=== PATIENT | female | born 1995 | race Two or more races ===

== ENCOUNTER → 2017-05-25 15:02 | Outpatient (CLI) | payer MEDICAID | END | disposition home or self-care (01) | LOC: D.LDO 15:02 | DX: O36.8190 Decreased fetal movements, unspecified trimester, not applicable or unspecified (principal); Z3A.00 Weeks of gestation of pregnancy not specified ==

== ENCOUNTER → 2017-07-01 10:26 | Outpatient (CLI) | payer MEDICAID ==
[2017-07-01 11:24] LABS: APPEARANCE CLEAR (CLEAR); BILIRUBIN NEGATIVE (NEGATIVE); COLOR YELLOW (YELLOW); GLUCOSE 250 mg/dL (NEGATIVE); KETONE NEGATIVE (NEGATIVE); NITRITE NEGATIVE (NEGATIVE); PROTEIN NEGATIVE (NEGATIVE); SPECIFIC GRAVITY 1.025 (1.005-1.020); UROBILINOGEN NORMAL (NORMAL)
[2017-07-01 11:29] LABS: BACTERIA MANY /hpf (NONE SEEN); EPITHELIAL CELLS 0-5 /hpf (0-5); MUCUS <1+ /lpf (NONE SEEN); RED CELLS - URINE 0-5 /hpf (0-5); WHITE CELLS - URINE OCC /hpf (0-5)
[2017-07-01 11:30] LABS: CALCIUM OXALATE CRYSTALS 0-5 /hpf (NONE SEEN)
== END | disposition home or self-care (01) ==
LOC: D.LDO 10:26
PROVIDERS: Obstetrics & Gynecology
DX: O26.899 Other specified pregnancy related conditions, unspecified trimester (principal); Z3A.00 Weeks of gestation of pregnancy not specified; R10.2 Pelvic and perineal pain

== ENCOUNTER 2017-08-18 21:12 | Inpatient (IN) | payer MEDICAID ==
[~2017-08-18] VITALS: Ht 152.4 cm; Wt 68.0 kg
--- NOTE | ~2017-08-18 | OP ---
PATIENT NAME: RANDALL RAY MEDICAL RECORD: [id number] :93 LOCATION:[id number] ADMISSION DATE:08/18/17 SURGEON: CAMRON MEDEROS MD DATE OF OPERATION: 08/20/2017 DELIVERY NOTE PREDELIVERY DIAGNOSIS: Mother at term. POSTDELIVERY DIAGNOSES: 1. Mother delivered at term. 2. Shoulder dystocia. 3. Nonreassuring tracing. PROCEDURES: 1. Induction of labor. 2. Vacuum-assisted vaginal delivery. ATTENDING: Camron Mederos MD ANESTHETIC: Continuous lumbar epidural. FINDINGS: Viable male , vertex presentation, Apgars are 9 and 9, weight is 7 pounds 9 ounces. Shoulder dystocia encountered and relieved with Rashaad and suprapubic from left to right. Second degree laceration with repair utilizing 3-0 chromic. There is a vaginal vault laceration and Vicryl was utilized to close this. The placenta is spontaneous and intact. ESTIMATED BLOOD LOSS: 400 cc. DISPOSITION: Mother and recovered in the room. TRANSINT:[id number] Voice Confirmation ID: [id number] DOCUMENT ID: [id number] CAMRON MEDEROS MD at 1624 CC: [id number] DICTATION DATE: 08/20/17 0633 RECOVERY ASSISTANT: 08/20/17 0751 ADM IN [id number] [place] [address]
--- NOTE | ~2017-08-18 | DS ---
PATIENT:RANDALL RAY :89 MEDICAL RECORD: [id number] DISCHARGE SUMMARY ADMISSION DATE: 08/18/17 DISCHARGE DATE: 08/21/17 DATE OF ADMISSION: 08/18/2017. DATE OF DISCHARGE: 08/21/2017. ADMISSION DIAGNOSIS: at term. DISCHARGE DIAGNOSES: 1. at term. 2. Nonreassuring tracing. PROCEDURE PERFORMED: Induction of labor with vacuum-assisted delivery. ATTENDING: Sammi Estrada MD HISTORY OF PRESENT ILLNESS: See the H&P in the chart. SUMMARY OF HOSPITALIZATION: The patient was admitted to the hospital and induction delayed the first 8 hours. The patient finally had her Misoprostol started after several hours admission to the hospital. It was noted during her labor course, infant had an arrhythmia, most likely noted to be preatrial contractions. The patient went on to progress into active labor and during the second stage noted to have deep decelerations. With maternal consent, vacuum assisted vaginal delivery was affected. The patient did well with the exception of inability to void in the first few hours. Due to swelling and difficulties voiding, the Willis catheter was started and to be left in overnight. On the day of discharge, the patient will have the Willis removed and upon voiding will be discharged home. DISCHARGE MEDICATIONS: Include ibuprofen. The patient will be instructed to perform Sitz baths t.i.d. as needed. Follow up in 6 weeks in the clinic. TRANSINT:[id number] Voice Confirmation ID: [id number] DOCUMENT ID: [id number] SAMMI ESTRADA MD at 0820 CC: [id number] DICTATION DATE: 08/21/17 0846 FIELD CROP FARMWORKER: 08/21/17 1137 DIS IN 08/21/17 [id number] [place] [address]
[2017-08-18 23:40] LABS: HEMATOCRIT 29.1 % (36.0-48.0); HEMOGLOBIN 9.1 g/dL (12-16); MCH 21.9 pg (26.0-34.0); MCHC 31.3 g/dL (31.0-37.0); MCV 70.1 fL (80.0-100.0); MEAN PLATELET VOLUME 9.4 fL (7.4-10.4); RBC 4.15 10x6/uL (4.00-5.40); RDW 15.6 % (11.5-14.5); WBC 14.1 10x3/uL (4.8-10.8)
[2017-08-18 23:45] VITALS: BP 112/66; BMI 29.3
[2017-08-19 14:21] VITALS: Ht 152.4 cm; Wt 68.0 kg
[2017-08-20 06:16] LABS: RAPID PLASMA REAGIN Non Reactive (Non Reactive)
[2017-08-20 07:32] VITALS: BP 110/69
[2017-08-20 12:49] VITALS: BP 95/62
[2017-08-20 17:18] VITALS: BP 107/69
[2017-08-20 19:55] VITALS: BP 101/62
[2017-08-21 07:54] VITALS: BP 117/71
[2017-08-21 08:30] VITALS: BP 125/78
[2017-08-21] MEDS ORDERED: IBUPROFEN800 MG PO (12:16)
[2017-08-21 14:36] VITALS: BP 118/76
== END 2017-08-21 19:50 | disposition home or self-care (01) | DRG 775 ==
LOC: D.LD 21:12 → D.NSY 08-20 16:08 → D.LD 08-20 21:00
PROVIDERS: Obstetrics & Gynecology
PROC: 3E033VJ Introduction of Other Hormone into Peripheral Vein, Percutaneous Approach (ICD-10-PCS; principal; 2017-08-20)
PROC: 10D07Z6 Extraction of Products of Conception, Vacuum, Via Natural or Artificial Opening (ICD-10-PCS; 2017-08-20)
PROC: 0KQM0ZZ Repair Perineum Muscle, Open Approach (ICD-10-PCS; 2017-08-20)
PROC: 10907ZC Drainage of Amniotic Fluid, Therapeutic from Products of Conception, Via Natural or Artificial Opening (ICD-10-PCS; 2017-08-20)
DX: O76 Abnormality in fetal heart rate and rhythm complicating labor and delivery (principal); O70.1 Second degree perineal laceration during delivery; O48.0 Post-term pregnancy; O99.334 Smoking (tobacco) complicating childbirth; Z3A.40 40 weeks gestation of pregnancy; Z37.0 Single live birth

== ENCOUNTER 2019-01-14 06:11 | Inpatient (IN) | payer MEDICAID ==
[~2019-01-14] VITALS: Ht 152.4 cm; Wt 67.1 kg
[2019-01-14] VITALS (10 sets, daily range): BP systolic 96–126; BP diastolic 53–79; Ht 152.4 cm; Wt 67.1 kg
[~2019-01-14 06:11] MED LIST: IBUPROFEN800 MG PO
[2019-01-14 06:53] LABS: HEMATOCRIT 25.5 % (36.0-48.0); HEMOGLOBIN 7.7 g/dL (12-16); MCHC 30.2 g/dL (31.0-37.0); MEAN PLATELET VOLUME 9.2 fL (7.4-10.4); RBC 4.18 10x6/uL (4.00-5.40); RDW 18.3 % (11.5-14.5); WBC 9.4 10x3/uL (4.8-10.8)
[2019-01-14 06:55] LABS: MCH 18.4 pg (26.0-34.0)
[2019-01-14 07:03] LABS: UDS - AMPHET NEGATIVE QUAL (NEGATIVE); UDS - BARB NEGATIVE QUAL (NEGATIVE); UDS - BENZO NEGATIVE QUAL (NEGATIVE); UDS - COCAINE NEGATIVE QUAL (NEGATIVE); UDS - OPIATE NEGATIVE QUAL (NEGATIVE); UDS - PCP NEGATIVE QUAL (NEGATIVE); UDS - THC NEGATIVE QUAL (NEGATIVE)
--- NOTE | 2019-01-14 08:03 | NUR ---
BABY BORN AT 0754 TRANFERRED TO NURSERY WITH PINA KING RN, NURSERY NURSE.
--- NOTE | 2019-01-14 09:20 | NUR ---
FUNDUS IS MIDLINE 2/U, FIRM. HUNTER PAD IN PLACE. MODERATE RUBRA LOCHIA NOTED ON PAD. NO CLOTS PRESENT. WILL CONTINUE TO MONITOR.
--- NOTE | 2019-01-14 09:38 | NUR ---
RECEIVED PT VIA PT BED TO ROOM 1273-A, AWAKE, ALERT, CONVERSANT, SHIVERING, EXTRA BLANKET PROVIDED, HOB ELEVATED 30 DEGREES, SIDE RAILS UP X2, IV OF NS WITH 20 UNITS PITOCIN ADDED HUNG TO IVAC PUMP AND INFUSING TO LEFT FA PIV SITE WITHOUT DIFFICULTY, FUNDUS FIRM AT U/2 AND MIDLINE, LOCHIA RUBRA MODERATE AMOUNT NO CLOTS, STEVENS TO GRAVITY DRAINAGE WITH ZERO IN COLLECTION CHAMBER AT THIS TIME-URINE PRESENT IN TUBING. PT UNABLE TO MOVE LEGS FREELY AT THIS TIME, PEDAL PULSES STRONG/=/+2 B, NEGATIVE JOSÉ MIGUEL'S SIGN B LE. REVIEWED PLAN OF CARE, QUESTIONS ANSWERED, VSS. WILL MONITOR PER PROTOCOL.
--- NOTE | 2019-01-14 10:12 | NUR ---
SHIFT/ADMIT ASSESSMENT COMPLETED, MORPHINE ANALYTICAL RESEARCH CHEMIST HUNG AND INFUSING PER ANALYTICAL RESEARCH CHEMIST PUMP, PT DEMONSTRATES ABILITY TO PUSH BUTTON, DEMONSTRATES USE OF INCENTIVE SPIROMETRY WITH 1750ML VOLUME INSPIRED WITH ENCOURAGEMENT, TO PT ARMS AT THIS TIME. NO FAMILY PRESENT IN ROOM CONTINUE TO MONITOR.
--- NOTE | 2019-01-14 10:45 | NUR ---
FUNDUS FIRM AT U/2, LOCHIA RUBRA MODERATE AMOUNT, NO EXCESSIVE BLEEDING. PT DROWSY. WILL MONITOR.
--- NOTE | 2019-01-14 11:02 | NUR ---
PER REPORT OF Meli BIGGS RN STATES DR CHILDERS WANTED CBC 2 HOURS POST-OPERATIVELY SO WANTS TIMED BLOOD DRAW TODAY. ORDER CORRECTED TO REFLECT THIS ORDER ENTERED FOR TOMORROW AT 11 AM IN ERROR.
--- NOTE | 2019-01-14 11:16 | NUR ---
INFANT TO ARMS TO BOTTLE FEED , NO FAMILY PRESENT IN ROOM. PT AWAKE, ALERT, AND APPROPRIATELY CONVERSANT, DEMONSTRATING USE OF BOBTAIL DRIVER BUTTON USE FOR PAIN RATED 5-6/10--BOLUS GIVEN ONE HOUR AGO, ENCOURAGED USE OF BOBTAIL DRIVER BUTTON Q10 MIN UNTIL COMFORTABLE, PT STATES UNDERSTANDING, WILL RE-EVALUATE ON NEXT CHECK. FUNDUS FIRM AT U/2 AND MIDLINE, LOCHIA RUBRA MODERATE AMOUNT, NO CLOTS, CALL LIGHT IN EASY REACH.
--- NOTE | 2019-01-14 11:20 | NUR ---
NOTIFIED DR CHILDERS OF PT C/O PAIN RATED A 7 OF 10 ON INQUIRY. STATES TO GIVE AN ADDITIONAL DOSE TORADOL 15MG SIVP NOW. RELAYED TO PT.
--- NOTE | 2019-01-14 11:25 | NUR ---
ADMINISTERED TORADOL 15 MG SIVP PER PT REQUEST AND MD ORDER. PT WITH IN ARMS. NAD NOTED. CONTINUE TO MONITOR. NOTED THAT PERFORMANCE TEST ENGINEER JUST LEFT ROOM POST-TIMED CBC DRAW.
[2019-01-14 11:32] LABS: BASOPHILS 0.2 % (0-2); EOSINOPHILS 0.1 % (0-7); HEMATOCRIT 24.5 % (36.0-48.0); IMMATURE GRANULOCYTES 0.4 % (0-5); MCH 18.4 pg (26.0-34.0); MCHC 29.8 g/dL (31.0-37.0); MCV 61.7 fL (80.0-100.0); MEAN PLATELET VOLUME 9.5 fL (7.4-10.4); MONOCYTES 2.2 % (2-11); NEUTROPHILS 83.1 % (40-80); PLATELET COUNT 217 10x3/uL (130-400); RBC 3.97 10x6/uL (4.00-5.40); WBC 12.8 10x3/uL (4.8-10.8)
[2019-01-14 11:34] LABS: HEMOGLOBIN 7.3 g/dL (12-16)
--- NOTE | 2019-01-14 11:46 | NUR ---
PAGED DR CHILDERS TO REPORT CRITICAL LAB VALUE RECEIVED PER Juanis KING RN VIA LAB OF [facility] 7.3.
--- NOTE | 2019-01-14 12:06 | NUR ---
4 HOUR LIMIT REACHED ON METAL FITTER-PAGED DR CHILDERS TO NOTIFY. NEW ORDER RECEIVED TO DC METAL FITTER AND START MORPHINE 4 MG IV Q4 HOURS PRN PAIN. RELAYED INFORMATION TO PT.
--- NOTE | 2019-01-14 13:57 | NUR ---
PT C/O PAIN 8-9 ON NUMERIC PAIN SCALE, MORPHINE 4MG SIVP GIVEN FOR C/O PAIN, DEMONSTRATES IS USE UP TO 1500ML INSPIRED VOLUME, PERICARE PROVIDED, PERIPADS REPLACED, FUNDUS FIRM AT U/2 AND MIDLINE. REPORTS INCREASED NUMBNESS/TINGLING TO B LE NOW. NOTIFIED ANESTHESIA AND WILL CHECK ON ROUNDS THIS AFTERNOON. PT RESP EVEN AND UNLABORED, PT SMILES AND CONVERSES APPROPRIATELY. ABLE TO COOMBS FREELY, SCDS ON AND FUNCTIONING B LE. PEDAL PULSES STRONG AND EQUAL 2+ B.
--- NOTE | 2019-01-14 14:55 | NUR ---
PT C/O FEELING TINGLING AND NUMBNESS UPPER EXTREMETIES. MOVES AT ALL JOINTS WITHOUT DIFFICULTY. DR CHILDERS NOTIFIED. TO CONSULT ANESTHESIA FOR EVALUATION.
--- NOTE | 2019-01-14 15:26 | NUR ---
SITTING UP IN BED HOLDING . SAYS SHE NO LONGER HAS NUMBNESS OR TINGLING OF UPPER ARMS. "IT'S BETTER NOW. I THINK I WAS JUST STIFF". SIDE RAILS UP X 2, CALL LIGHT IN REACH. DR ROGERS'S ON L&D AT THIS TIME DOING AN EPIDURAL, WILL INFORM HIM OF CONSULT AND RESOLUTION OF COMPLAINT.
--- NOTE | 2019-01-14 15:45 | NUR ---
DR CHILDERS ON L&D AND NOTIFIED THAT PT NO LONGER C/O OF NUMBNESS AND TINGLING OF UPPER EXTREMETIES. NO NEW ORDERS.
--- NOTE | 2019-01-14 16:30 | NUR ---
ROUNDS COMPLETED, PT STATES LESS NUMBNESS AND TINGLING, NO ARM PAIN. RATES PAIN AROUND A 6 OR 7 NOW BUT SMILES AND CARRIES ON CONVERSATION. FACIAL SCALE PAIN SCALE IS APPROXIMATELY 3-4 PER THIS MARKETING SALES MANAGER. TOLERATING PO FLUIDS, SIPPING SPRITE.
--- NOTE | 2019-01-14 18:16 | NUR ---
PT C/O ABD INCISIONAL PAIN, TORADOL AND MORPHINE ADMINISTERED PER PT REQUEST. PT TALKATIVE, IN ARMS, DENIES OTHER NEEDS OR CONCERNS, CALL LIGHT IN EASY REACH, NAD NOTED. CONTINUE TO MONITOR.
--- NOTE | 2019-01-14 19:15 | NUR ---
bedside report completed, nad noted.
--- NOTE | 2019-01-14 19:20 | NUR ---
ASSESSMENT PER FLOW SHEET, VS OBTAINED, IV IN LEFT FA INTACT WITH NO REDNESS OR EDEMA INFUSING VIA PUMP NS WITH PITOCIN AT 125 ML/HR, FF, ML, U/2, LITE BLEEDING WITH NO CLOTS NOTED, BIKINI INC WITH LARGE DRESSING CDI WITH NO DRAINAGE NOTED, ICE PACK TO ABD, STEVENS CATH INTACT DRAINING DARK YELLOW URINE, PT ENC TO DRINK PLENTY OF FLUID, SCD'S ON AND WORKING PROPERLY, POC DISCUSSED WITH PT REGARDING REMOVING STEVENS, SALINE LOCK IV, AND STARTING PO PAIN MEDS, PT VERBALIZES UNDERSTANDING, BEHZAD GREEN LPN IN ROOM DOING ASSESSMENT, PT RATES INC PAIN 12/14, PT DENIES NEEDS AT THIS TIME
--- NOTE | 2019-01-14 20:02 | NUR ---
IVF COMPLETED, IVAC ALARMING ON ENTRY TO ROOM. PIV CONVERTED TO SL TO LEFT FA, PT TOLERATES WELL. LEMON ELIM IRA SODA PROVIDED UPON REQUEST. NO OTHER NEEDS VOICED.
--- NOTE | 2019-01-14 20:38 | NUR ---
PT FEEDING INFANT, INFORMED PT THAT I WILL COME BACK SHORTLY TO REMOVE HILDA, PT VERBALIZES UNDERSTANDING, DENIES NEEDS AT THIS TIME
--- NOTE | 2019-01-14 21:30 | NUR ---
STEVENS CATH REMOVED, TIP INTACT, EMPTIED 350 MLS OF DARK YELLOW URINE FROM STEVENS, PT INST ON USING CALL LIGHT WHEN NEEDING TO GET UP TO VOID, PT VERBALIZES UNDERSTANDING, DENIES NEEDS AT THIS TIME, BED IN LOW POSITION, SIDE RAILS X 2, CALL LIGHT IN REACH
--- NOTE | 2019-01-14 22:23 | NUR ---
PT TRAVEL AGENCY MANAGER LIGHT, C/O INC PAIN, ADM PERCOCET PER MD ORDERS, SEE EMAR, WITH FRESH H20 AND VANILLA PUDDING, PT DENIES FURTHER NEEDS, BEHZAD GREEN LPN IN ROOM AT THIS TIME
[2019-01-15 00:44] VITALS: BP 105/56
--- NOTE | 2019-01-15 00:44 | NUR ---
PT HOLDING INFANT, JUST CHANGED INFANTS DIAPER, VS OBTAINED, ADM MOTRIN PER MD ORDERS, SEE EMAR, PT DENIES FURTHER NEEDS
--- NOTE | 2019-01-15 01:41 | NUR ---
PT EDUCATION OFFICER LIGHT, APOORVA VALLES RN TO ROOM
--- NOTE | 2019-01-15 01:47 | NUR ---
THIS RN TO ROOM, APOORVA VALLES RN CHANGING INFANTS DIAPER, PT UP IN BR, PT VOIDED 350 MLS OF LIGHTLY BLOOD TINGED URINE BY SELF WITH NO DIFFICULTY, BEDDING CHANGED, ASSISTED PT WITH HUNTER PAD AND PANTIES, PT BACK TO BED, SCD'S APPLIED AND WORKING PROPERLY, BACK TO NSY VIA OPEN CRIB CART PER APOORVA VALLES RN, PT RATES INC PAIN 12/14, INFORMED PT THAT I WILL ADM PAIN MED AT 2:30AM, FRESH ICE PACK PROVIDED, PT REQUESTED AND SERVED LEMON EKWOK SODA, DENIES FURTHER NEEDS, BED IN LOW POSITION, SIDE RAILS X 2, CALL LIGHT IN REACH
--- NOTE | 2019-01-15 02:31 | NUR ---
PT RESTING, ADM PERCOCET PER MD ORDERS, SEE EMAR, PT DENIES FURTHER NEEDS
--- NOTE | 2019-01-15 04:12 | NUR ---
PT RESTING WITH EYES CLOSED, RESP QUIET, NO DISTRESS NOTED, LEFT UNDISTURBED AT THIS TIME, SCD'S CONTINUE ON AND WORKING PROPERLY, BED IN LOW POSITION, SIDE RAILS X 2, CALL LIGHT IN REACH6
[2019-01-15 05:30] VITALS: BP 124/72
--- NOTE | 2019-01-15 05:30 | NUR ---
PT CODE ENFORCEMENT SUPERVISOR LIGHT, VS OBTAINED, SCDS REMOVED, PT UP TO BR WITH ASSISTANCE, GAIT STEADY, VOIDED 50 MLS OF LIGHTLY BLOOD TINGED URINE, 1 NICKEL SIZE CLOT NOTED, PT STATES "I FEEL LIKE I NEED TO PEE, BUT I GUESS I'M GOING TO TRY AGAIN IN A FEW MINUTES", PT PLACED OWN HUNTER PAD AND PANTIES, PT TO SIDE OF BED, PT INST TO USE CALL LIGHT FOR ANY ASSISTANCE, PT INST TO DRINK PLENTY OF FLUIDS, PT DENIES NEEDS AT THIS TIME
--- NOTE | 2019-01-15 06:39 | NUR ---
PT SUPPORT ASSOCIATE LIGHT, PT VOIDED BY SELF WITH NO DIFFICULTY, SCD'S CONNECTED AND WORKING PROPERLY, ADM MOTRIN AND PERCOCET PER MD ORDERS, SEE EMAR, PT DENIES FURTHER NEEDS
--- NOTE | 2019-01-15 07:00 | NUR ---
SHIFT REPORT TO DAY SHIFT
[2019-01-15 07:27] LABS: BASOPHILS 0.4 % (0-2); HEMATOCRIT 27.5 % (36.0-48.0); HEMOGLOBIN 8.1 g/dL (12-16); IMMATURE GRANULOCYTES 0.3 % (0-5); LYMPHOCYTES 18.8 % (15-50); MCH 18.2 pg (26.0-34.0); MCHC 29.5 g/dL (31.0-37.0); MCV 61.7 fL (80.0-100.0); MEAN PLATELET VOLUME 9.4 fL (7.4-10.4); NEUTROPHILS 75.5 % (40-80); PLATELET COUNT 269 10x3/uL (130-400); RBC 4.46 10x6/uL (4.00-5.40); RDW 18.6 % (11.5-14.5); WBC 13.6 10x3/uL (4.8-10.8)
--- NOTE | 2019-01-15 07:30 | NUR ---
PT UP TO VOID, ENCOURAGED HER NOT TO BEAR DOWN WITH VOIDS, FAUCET TURNED ON AND PRIVACY GIVEN, THIS RN DOES REMAIN IN ROOM. PT IS ABLE TO VOID 400ML AFTER INTERVENTIONS. AMB PER SELF TO SINK TO WASH HANDS THAN BACK TO BED AND POSITIONS SELF FOR COMFORT. RATES PAIN AT 7/10 BUT STATES IS WAS 3/10 BEFORE GETTING UP TO BATHROOM. FUNDUS FIRM AT U/U WITH SCANT BLEEDING NOTED. BILAT SCD IN PLACE PER ORDERS. NO CONCERNS OR NEEDS AT THIS TIME. CALL LIGHT IN REACH WITH SIDE RAILS UP X 2.
--- NOTE | 2019-01-15 08:30 | NUR ---
LARGE SPRITE PER REQUEST. RATES PAIN AT 4/10 AT THIS TIME. IN CRIB AT BEDSIDE. CALL LIGHT IN REACH.
--- NOTE | 2019-01-15 10:00 | NUR ---
PT RESTING ON HER BACK, EYES CLOSED AND RESP EVEN, NO SIGNS OF DISTRESS NOTED. PT LEFT UNDISTURBED. SIDE RAILS UP X 2 WITH CALL LIGHT WITH IN HER REACH.
--- NOTE | 2019-01-15 11:30 | NUR ---
UP TO VOID, 400ML CLEAR URINE NOTED TO COLLECTION HAT. EXPLAINED TO PT THAT SHE NO LONGER HAD TO MEASURE OUTPUT. STATES HER UNDERSTANDING AND DENIES QUESTIONS. ALSO EXPLAINED THAT SHE COULD CALL WHEN READY TO SHOWER AND THIS RN WOULD ASSIST HER NEEDED. IN CRIB AT BEDSIDE. SIDE RAILS UP X 2, CALL LIGHT AND PHONE WITH IN HER REACH.
[2019-01-15 12:30] VITALS: BP 102/62
--- NOTE | 2019-01-15 12:30 | NUR ---
CALLED TO ROOM, ASSISTANCE GIVEN TO TRANSFER IN TO BEDSIDE CRIB. PT THEN UP TO VOID. RATES PAIN AT 6/10 AND IS AGREEABLE TO PAIN MED BUT ASK TO EAT FIRST. WILL CALL WHEN READY FOR MEDS. CALL LIGHT IN REACH
--- NOTE | 2019-01-15 13:00 | NUR ---
PAIN MED GIVEN SCANNED TO EMAR. PAIN STILL AT 6/10 AT INCISION SITE. ALSO GIVEN LARGE CUP OF ICE WITH COLA REQUESTED. IN CRIB AT BEDSIDE. PT DENIES ANY OTHER NEEDS AT THIS TIME. CALL LIGHT IN HER REACH WITH SIDE RAILS UP X 2.
--- NOTE | 2019-01-15 16:00 | NUR ---
pt up to shower, this rn at bedside with in crib. Bed linens changed and trash taken out. pt denies dizziness or nausea thru her shower. Able to dress herself without need of assistance. dinner tray per dietary and large cup of ice with cola as requested.
--- NOTE | 2019-01-15 17:13 | NUR ---
PAIN MED GIVEN SCANNED TO EMAR. PT RATES PAIN AT 6/10 AT INCISION SITE. NO OTHER NEEDS AT THIS TIME.
--- NOTE | 2019-01-15 17:35 | NUR ---
PT FEEDING AT THIS TIME. RATES PAIN AT 4/10 BUT COMPLAINS OF "PRESSURE" BETWEEN HER SHOULDER BLADES, REASSURED HER AND CONFIRMED THAT SHE WAS PASSING GAS. ENCOURAGED HER TO AMBULATE IN GRANDE AFTER FEEDING AFTERWARDS WOULD REEVALUATE PRESSURE. STATES HER UNDERSTANDING AND DENIES ANY OTHER CONCERNS. DR EVANGELISTA AT BEDSIDE TALKING ABOUT STATUS. CALL LIGHT WITHIN HER REACH.
[2019-01-15 19:33] VITALS: BP 108/63
--- NOTE | 2019-01-15 19:33 | NUR ---
ASSESSMENT PER FLOW SHEET, VS OBTAINED, FF, ML, U/1, PT REPORTS LITE BLEEDING WITH NO CLOTS, BIKINI INC WITH DERMABOND CDI WITH NO DRAINAGE NOTED, HUNTER PAD OVER INC FOR COMFORT AND MOISTURE CONTROL, PT REPORTS "A LITTLE BIT" OF FLATUS, NO BM AND VOIDING WITH NO DIFFICULTY, ADM MOTRIN PER MD ORDERS FOR CRAMPING, SEE EMAR, PT INST ON AND REPORTS USING I.S. INST, PT DENIES FURTHER NEEDS, INFANT TO ROOM VIA OPEN CRIB CART PER ISHMAEL NEWMAN RN, INFANT TO PT'S ARMS
--- NOTE | 2019-01-15 20:33 | NUR ---
PT VISITING WITH FAMILY AND FRIENDS AT THIS TIME, FEMALE HOLDING , DENIES NEEDS AT THIS TIME
--- NOTE | 2019-01-15 21:25 | NUR ---
PT TRANSPORTATION ENGINEER LIGHT, C/O INC PAIN, ADM PERCOCET PER MD ORDERS, PT DENIES FURTHER NEEDS, INFANT TO ROOM VIA OPEN CRIB CART PER ISHMAEL NEWMAN RN
--- NOTE | 2019-01-15 21:50 | NUR ---
PT AMB IN GRANDE, GAIT STEADY, HOLDING , PT INFORMED THAT SHE CANNOT WALK IN HALLWAY CARRYING , THAT INFANT NEEDS TO BE IN OPEN CRIB CART WHILE IN GRANDE, PT VERBALIZES UNDERSTANDING, PT BACK TO ROOM
--- NOTE | 2019-01-15 22:30 | NUR ---
PT UP IN ROOM, RATES INC PAIN 07/17, INFANT IN OPEN CRIB CART, PT DENIES NEEDS AT THIS TIME
[2019-01-16 00:13] VITALS: BP 111/67
--- NOTE | 2019-01-16 00:13 | NUR ---
PT LAYING IN BED HOLDING , VS OBTAINED, REQUESTED AND SERVED COLA, DENIES FURTHER NEEDS OR PAIN
--- NOTE | 2019-01-16 02:49 | NUR ---
PT LOOKING AT IPAD, REQUESTED AND ADM MOTRIN PER MD ORDERS, SEE EMAR, PT DENIES FURTHER NEEDS, INFANT IN NSY AT THIS TIME
--- NOTE | 2019-01-16 04:15 | NUR ---
PT AWAKE, LOOKING AT IPAD, DENIES NEEDS AT THIS TIME
--- NOTE | 2019-01-16 06:30 | NUR ---
PT AROUSES TO OPENING OF DOOR, REQUESTED AND ADM PERCOCET PER MD ORDERS, SEE EMAR, HANDED TO PT, PT DENIES FURTHER NEEDS
[2019-01-16 07:20] VITALS: BP 121/71
--- NOTE | 2019-01-16 07:20 | NUR ---
RECEIVED PT SITTING UP IN BED. HOLDS INFANT WITH MUCH WARMTH SHOWN. VSS. HRRR WITHOUT AUDIBLE MURMUR. BBS CLEAR. BS X 4. ABDOMEN SOFT/NON-DISTENDED. FUNDUS FIRM AT U/2. RUBRA LOCHIA SMALL AMT. NO CLOTS OR HEAVY BLEEDING PER PT STATES. NEG HOMANS' SIGN. PPP. MILD NON-PITTING EDEMA NOTED TO BLE. ABDOMINAL INCISION WITH DERMABOND. NO REDNESS, SWELLING OR DRAINAGE NOTED. PT STATES PAIN "4" ON 0-10 PAIN SCALE. STATES "SORENESS". DECLINES PAIN MED AT THIS TIME. REQUESTS AND RECEIVES COLA. SR UP X 2. CALL LIGHT IN REACH.
--- NOTE | 2019-01-16 07:30 | NUR ---
DR CHILDERS VISITS WITH PT. ORDERS RECEIVED TO DC HOME AND F/U IN CLINIC IN 2 WEEKS.
--- NOTE | 2019-01-16 08:48 | NUR ---
MOTRIN 600 MG GIVEN PO ORDERED FOR PT C/O ABDOMINAL PAIN OF "4" ON 0-10 PAIN SCALE.
[2019-01-16] MEDS ORDERED: PERCOCET 5-3251 TAB PO (10:27)
--- NOTE | 2019-01-16 10:40 | NUR ---
DISCHARGE INSTRUCTIONS GIVEN TO PT. PT VERBALIZES UNDERSTANDING OF ALL INSTRUCTIONS. COPIES GIVEN TO PT. PT AWAITS 'S DISCHARGE.
--- NOTE | 2019-01-16 10:52 | NUR ---
PT C/O INCISIONAL PAIN OF "4" ON 0-10 PAIN SCALE. PERCOCET 10/325 GIVEN PO ORDERED. PT INSTRUCTED ON MED. VERBALIZES UNDERSTANDING.
--- NOTE | 2019-01-16 12:00 | NUR ---
PT SITTING UP IN BED. CONSUMING LUNCH. DENIES C/O OR NEEDS.
--- NOTE | 2019-01-16 13:30 | NUR ---
PT AMBULATES IN HALLS TO NURSERY. DENIES C/O OR NEEDS.
--- NOTE | 2019-01-16 14:40 | NUR ---
PT READY FOR DISCHARGE. DISCHARGED IN STABLE CONDITION VIA WHEELCHAIR PER AUXILIARY STAFF TO PRIVATE VEHICLE. INFANT IN PT ARMS.
[2019-01-17 07:14] LABS: RAPID PLASMA REAGIN Non Reactive (Non Reactive)
--- NOTE | 2019-01-18 13:41 | OP ---
PATIENT NAME: RANDALL RAY MEDICAL RECORD: [id number] :93 LOCATION:[id number] ADMISSION DATE:01/14/19 SURGEON: TYSON CHILDERS DO DATE OF OPERATION: 01/14/2019 PREOPERATIVE DIAGNOSES: 1. Spontaneous rupture of membranes. 2. Breech presentation at 38 weeks and 4 days. POSTOPERATIVE DIAGNOSES: 1. Spontaneous rupture of membranes. 2. Breech presentation at 38 weeks and 4 days. PRIMARY SURGEON: Tyson Childers DO ANESTHESIA: Slim Rivas CRNA. PROCEDURE: Primary low transverse section via Pfannenstiel incision. FINDINGS: Female , weight 7 pounds 15 ounces, Apgars 8 and 9, delivered in breech presentation. Normal appearing uterus, fallopian tubes, and ovaries. SPECIMENS: Placenta sent to pathology. ESTIMATED BLOOD LOSS: 800 mL. IV FLUIDS: 2300 cc crystalloid. URINE OUTPUT: 400 cc clear urine. COMPLICATIONS: None. CONDITION: Stable. DESCRIPTION OF PROCEDURE: The risks, benefits, alternatives and indications to the procedure were discussed with the patient. She voiced understanding of the procedure and signed the consent. She was taken to the OR where spinal anesthesia was administered and found to be adequate. She was placed in the dorsal supine position with a leftward tilt. She was prepped and draped in a normal sterile fashion. A Pfannenstiel skin incision was made with a scalpel and carried down to the underlying layer of the fascia with the Bovie. The fascia was incised in the midline and extended laterally. The inferior aspect of the fascial incision was grasped with Marlon clamps and the rectus muscle was dissected off sharply. Attention was then turned to the superior aspect of the fascial incision and the rectus muscle was dissected off in a similar fashion. The rectus muscle was in the midline down to the level of the peritoneum. The peritoneum was identified and noted to be free of adherent bowel and entered bluntly. The peritoneum was further with gentle traction. The bladder blade was inserted. Uterus was incised in a transverse fashion on the lower uterine segment. was delivered in breech presentation without difficulty. Mouth and nose were suctioned. Cord was clamped and cut. The was handed off to waiting pediatricians. The placenta was manually removed. The uterus was exteriorized and a moist lap was used to assure complete removal of placenta membranes. The hysterotomy was closed with 0 Vicryl in a running fashion with good hemostasis noted. Small OPERATIVE REPORT [id number] RANDALL RAY hematoma on the right side of the hysterotomy noted, which was ligated with good hemostasis. Uterus, tubes, and ovaries were noted to be normal. Posterior cul-de-sac was irrigated and a moist lap was used to assure complete removal of blood clots and fluid. The uterus was returned back to the abdominal cavity. The hysterotomy was reinspected and noted to be hemostatic. Once again, a moist lap was used to assure complete removal of blood clots and fluid from the abdominal cavity. The rectus muscle was closed with 2-0 Monocryl in a running fashion with good hemostasis. The fascial incision was closed with 0 PDS in a running fashion with good hemostasis. The skin was closed with 3-0 Monocryl in a subcuticular fashion with Dermabond and good hemostasis was noted. All needle, lap, sponge and instrument counts were correct times 2. The patient tolerated the procedure well and she was taken to the recovery room in stable condition. TRANSINT:[id number] Voice Confirmation ID: [id number] DOCUMENT ID: [id number] TYSON CHILDERS DO at 1341 CC: [id number] DICTATION DATE: 01/18/19833 DIRECTOR OF SCIENTIFIC RESEARCH: 01/18/19 0911 DIS IN 01/16/19 [facility] [address] [place] [address]
== END 2019-01-16 14:40 | disposition home or self-care (01) | DRG 788 ==
LOC: D.LDO 06:11 → D.LD 06:17
PROVIDERS: ADMIT Student in an Organized Health Care Education/Training Program; ATTEND Student in an Organized Health Care Education/Training Program
PROC: 10D00Z1 Extraction of Products of Conception, Low, Open Approach (ICD-10-PCS; principal; 2019-01-14 07:46)
DX: O32.1XX0 Maternal care for breech presentation, not applicable or unspecified (principal); Z3A.38 38 weeks gestation of pregnancy; Z37.0 Single live birth; O99.02 Anemia complicating childbirth